=== PATIENT | male | born 1975 | race Caucasian/White ===

== ENCOUNTER → 2017-11-02 | Outpatient (CLI) | payer OTHER ==
--- NOTE | 2017-11-02 11:41 | Diagnostic Imaging Report ---
TECHNIQUE: Magnetic resonance imaging of the LEFT KNEE was performed WITHOUT injected contrast. HISTORY: Pain, medial side, walking downstairs, STRAIN OF MUSCLE / TENDON AT LOWER COMPARISON: None available. FINDINGS: LIGAMENTS AND TENDONS: ACL: Intact, mild intrasubstance degeneration. PCL: Intact Collateral ligaments: Intact Iliotibial band: Unremarkable Popliteal tendon: Intact Extensor mechanism: Intact, intrasubstance heterogeneity and ossification near the tibial tubercle, compatible with remote apophysitis (Bekah-Schlatter's). JOINT: Menisci: Medial: Intact Lateral: Intact Articular Cartilage: Medial Compartment: Intermediate grade erosion and fibrillation involving the weight-bearing cartilage of the femoral condyle and tibial plateau. Lateral Compartment: No focal defect. Patellofemoral Compartment: High-grade to full-thickness erosions, most notably the patellar apex and medial facet with additional full-thickness fissures. Joint Fluid: The amount of fluid within the joint is within physiologic limits. A nondistended Multani's cyst. BONES: No focal or infiltrative bone marrow replacing abnormality. No acute fracture. Patchy subchondral bone marrow edema adjacent to the patellar apex and inferior aspect of the femoral trochlea. SOFT TISSUES: A small intrasubstance ganglion cyst within the medial head of the gastrocnemius tendon near the femoral insertion, measuring up to 1.2 cm, this is a common incidental finding. IMPRESSION: Patellofemoral compartment predominant osteoarthrosis with associated reactive subchondral bone marrow edema. Signed by: Dr. Timmy Duong D.O., M.M.M. on 11/02/2017 11:37 AM
== END ==
LOC: MRI 10:03
PROVIDERS: ATTEND Family Medicine
DX: S86.812D Strain of other muscle(s) and tendon(s) at lower leg level, left leg, subsequent encounter (principal)